=== PATIENT | female | born 1935 | race Caucasian/White ===

== ENCOUNTER 2024-11-08 22:32 | Emergency (ER) | payer OTHER ==
[~2024-11-08] VITALS: Ht 162.6 cm; Wt 82.0 kg
[2024-11-08 22:34] VITALS: O2SAT 99
[2024-11-08] MEDS: ACETAMINOPHEN 1000MG/100ML 100 ML IV ONE (22:45)
[2024-11-08] MEDS: MECLIZINE 25MG TABLET PO ONE (22:45)
[2024-11-08] MEDS: ONDANSETRON HCL 4MG/2ML INJ IV ONE (23:15)
[2024-11-08 23:44] LABS: BASOPHILS % 0.7 % (0.0-2.0); CARBON DIOXIDE 26 mEq/L (21-32); CHLORIDE 103 mEq/L (98-107); EOSINOPHILS % 2.8 % (0.0-5.0); HEMATOCRIT. 35.4 % (36.0-48.0); HEMOGLOBIN. 12.5 g/dL (12.0-16.0); LYMPHOCYTES % 30.3 % (20.0-50.0); MEAN CORPUSCULAR HEMOGLOBIN 31.7 pg (28.0-32.0); MEAN CORPUSCULAR HGB CONC 35.3 g/dL (31.0-37.0); MEAN CORPUSCULAR VOLUME 89.7 fL (81.0-99.0); MEAN PLATELET VOLUME 8.7 fl (7.4-10.4); MONOCYTES % 7.9 % (2.0-8.0); NEUTROPHILS % 58.3 % (40.0-76.0); PLATELET 290 x1000/uL (130-400); POTASSIUM 3.5 mEq/L (3.5-5.1); RED BLOOD CELL COUNT 3.95 mill/uL (4.2-5.4); RED CELL DISTRIBUTION WIDTH 16.3 % (11.6-14.6); SODIUM 140 mEq/L (136-145); WHITE BLOOD COUNT 8.6 x1000/uL (4.5-11.0)
[2024-11-08 23:45] LABS: CALCIUM 9.9 mg/dL (8.7-10.4)
[2024-11-08 23:49] LABS: CREATININE 1.4 mg/dL (0.6-1.0)
[2024-11-08 23:50] LABS: GLUCOSE 184 mg/dL (70-105); TROPONIN I HIGH SENSITIVITY 7 ng/L (3.0-34); UREA NITROGEN BLOOD 23 mg/dL (9-23)
[2024-11-08 23:51] LABS: INR 0.9; PARTIAL THROMBOPLASTIN TIME 22.2 sec (23.4-31.0); PROTHROMBIN TIME 10.1 sec (9.6-11.0)
[2024-11-08 23:54] LABS: ETHANOL BLOOD < 10 mg/dL (<10)
[2024-11-09] MEDS: MORPHINE SULFATE 2 MG/ML INJ (NOT FOR IM USE) IV ONE (01:30)
[2024-11-09] MEDS: ONDANSETRON HCL 4MG/2ML INJ IV ONE (04:04)
[2024-11-09] MEDS ORDERED: ONDANSETRON HCL 4MG/2ML INJ IV NR (04:15)
[2024-11-09] MEDS ORDERED: PANTOPRAZOLE SODIUM 40 MG/VIAL IV NR (04:15)
[2024-11-09] MEDS: PANTOPRAZOLE SODIUM 40 MG/VIAL IV ONE (04:21)
[2024-11-09 04:35] VITALS: BP 148/66; PULSE 67; RESP 15; TEMP 36.6; O2SAT 99
== END 2024-11-09 04:42 | disposition short-term general hospital (02) ==
LOC: ER 22:41
DX: R42 Dizziness and giddiness (principal); R11.2 Nausea with vomiting, unspecified; R07.9 Chest pain, unspecified; I10 Essential (primary) hypertension
CPT/HCPCS: 80048; 80320; 83880; 85025; 85610; 85730; 84484; 36415; 71045; 93005; 96365; 96375 ×2; 99285; 70450; 96376; J2405 ×2; J2470; G0480; J0131